=== PATIENT | male | born 1980 | race African-American/Black ===

== ENCOUNTER 2017-11-19 18:39 | Emergency (ER) | payer MEDICAID ==
[~2017-11-19] VITALS: Ht 172.7 cm; Wt 67.0 kg
[2017-11-19] MEDS ORDERED: HYDROCODONE/ACETAMINOPHEN 5/325MG TABLET PO ONE (19:30)
[2017-11-19 20:32] VITALS: BP 121/74
== END 2017-11-19 20:36 | disposition home or self-care (01) ==
LOC: ER 19:09
DX: S20.211A Contusion of right front wall of thorax, initial encounter (principal); R56.9 Unspecified convulsions; F12.10 Cannabis abuse, uncomplicated; Z88.0 Allergy status to penicillin; V49.9XXA Car occupant (driver) (passenger) injured in unspecified traffic accident, initial encounter; Y93.89 Activity, other specified; Y99.8 Other external cause status; Y92.410 Unspecified street and highway as the place of occurrence of the external cause
CPT/HCPCS: 71045; 99284